=== PATIENT | female | born 1985 | race Hispanic/Latino ===

== ENCOUNTER 2017-04-06 15:47 | Emergency (ER) | payer BC ==
[2017-04-06 16:28] LABS: Basophils % (Auto) 1.1 % (0.0-1.8); Eosinophils % (Auto) 5.1 % (0.0-4.3); Hematocrit 39.7 % (30.3-42.9); Hemoglobin 13.3 gm/dl (10.1-14.3); Mean Corpuscular HGB Conc 33 % (30-34); Mean Corpuscular Hemoglobin 31 pg (28-32); Mean Corpuscular Volume 91 fl (79-97); Platelet Count 372 K/mm3 (140-440); Red Blood Count 4.36 M/mm3 (3.65-5.03); Red Cell Distribution Width 13.1 % (13.2-15.2)
[2017-04-06 16:45] LABS: BUN/Creatinine Ratio 18.33; Blood Urea Nitrogen 11 mg/dL (7-17); Calcium 9.2 mg/dL (8.4-10.2); Carbon Dioxide 24 mmol/L (22-30); Glucose 86 mg/dL (65-100)
[2017-04-06 16:46] LABS: Alanine Aminotransferase 25 units/L (7-56); Albumin 4.4 g/dL (3.9-5); Albumin/Globulin Ratio 1.6 %; Alkaline Phosphatase 44 units/L (35-129); Anion Gap 18 mmol/L; Chloride 100.5 mmol/L (98-107); Lipase 21 units/L (13-60); Potassium 4.1 mmol/L (3.6-5.0); Sodium 138 mmol/L (137-145); Total Protein 7.2 g/dL (6.3-8.2)
[2017-04-06 17:58] LABS: Bilirubin,Urine NEG (Negative); Blood,Urine MOD (Negative); Ketones,Urine 20 mg/dL (Negative); Leukocyte Esterase,Urine NEG (Negative); Mucus,Urine 3+ /HPF; Nitrite,Urine NEG (Negative); Urobilinogen,Urine < 2.0 mg/dL (<2.0)
[2017-04-06] MEDS ORDERED: NACL 0.9% 1000 ML 1,000 ML IV ONE (20:20)
[2017-04-06] MEDS ORDERED: ZOFRAN IV ONE (20:20)
[2017-04-06] MEDS ORDERED: MORPHINE IV ONE (20:21)
--- NOTE | 2017-04-06 20:37 | Emergency Department Report ---
HPI - General Chief Complaint: Abdominal Pain Time Seen by Provider: 04/06/17 20:08 - HPI HPI: This is a 31-year-old female presents to the emergency department from home with complaint of acute on chronic lower abdominal pain. It is associated with some nausea and vomiting. She says that this is been a condition that has been going on for the past year or so. She went to see her primary care physician at [facility] in [place] and a rectal examination was done that made the PCP believe there was a internal hemorrhoid. She was sent to a colorectal surgeon who did a sigmoid scope and didn't fact see a internal hemorrhoid but it was only slightly inflamed and did not appear to be the cause of her discomfort. She is scheduled to have a CT done on Sunday but the pain worsened today and they could not wait any further. She otherwise does not have any diagnosed past medical condition. She has been on pain medication and nausea medication for the symptoms. No recent travel or sick contacts at home. ED Past Medical Hx - Past Medical History Previous Medical History?: No - Surgical History Additional Surgical History: c/s, hip fx with surgery - Social History Smoking Status: Current Every Day Smoker Substance Use Type: None ED Review of Systems ROS: Stated complaint: ABDOMINAL PAIN Other details as noted in HPI Comment: All other systems reviewed and negative Constitutional: denies: chills, fever Eyes: denies: eye pain, eye discharge, vision change ENT: denies: ear pain, throat pain Respiratory: denies: cough, shortness of breath, wheezing Cardiovascular: denies: chest pain, palpitations Gastrointestinal: abdominal pain, nausea, vomiting Genitourinary: denies: urgency, dysuria, discharge Musculoskeletal: denies: back pain, joint swelling, arthralgia Skin: denies: rash, lesions Neurological: denies: headache, weakness, paresthesias Physical Exam - Physical Exam Vital Signs: Vital Signs 04/06/17 15:51 Temperature 97.6 F Pulse Rate 75 Respiratory 16 Rate Blood Pressure 103/72 O2 Sat by Pulse 94 Oximetry Physical Exam: GENERAL: The patient is well-developed well-nourished. HENT: Normocephalic. Atraumatic. Patient has moist mucous membranes. EYES: Extraocular motions are intact. Pupils equal reactive to light bilaterally. NECK: Supple. Trachea is midline. CHEST/LUNGS: Clear to auscultation. There is no respiratory distress noted. HEART/CARDIOVASCULAR: Regular. There is no tachycardia. There is no gallop rub or murmur. ABDOMEN: Abdomen is soft. There is some tenderness palpation to the lower quadrants of the abdomen. No guarding or rebound tenderness. No peritoneal signs. Patient has normal bowel sounds. There is no abdominal distention. SKIN: Skin is warm and dry. NEURO: The patient is awake, alert, and oriented. The patient is cooperative. The patient has no focal neurologic deficits. The patient has normal speech. MUSCULOSKELETAL: There is no tenderness or deformity. There is no limitation range of motion. There is no evidence of acute injury. ED Course Vital Signs 04/06/17 15:51 Temperature 97.6 F Pulse Rate 75 Respiratory 16 Rate Blood Pressure 103/72 O2 Sat by Pulse 94 Oximetry ED Medical Decision Making - Lab Data Result diagrams: 04/06/17 16:14 04/06/17 16:12 - Radiology Data Radiology results: report reviewed CT abdomen and pelvis with contrast. TECHNIQUE: Computerized axial tomography of the abdomen and pelvis was performed after the IV injection of iodinated nonionic contrast. HISTORY: Abdominal pain. COMPARISON: No prior studies are available for comparison. FINDINGS: The lung bases are clear. There are no pleural effusions. The heart size is normal. The liver, spleen and pancreas appear normal. The gallbladder is present. The adrenal glands are not enlarged. Both kidneys appear normal in size and configuration. The abdominal aorta has a normal caliber. There is no retroperitoneal adenopathy. A normal appendix is visible. The gastrointestinal tract is unremarkable. The bladder, uterus and adnexal regions appear normal. There are 2 metallic pins in the right femoral neck. The regional skeleton appears intact. IMPRESSION: No evidence of acute disease in the abdomen or pelvis. - Medical Decision Making 31-year-old female presents to the emergency department with acute on chronic lower abdominal pain. Labs are unremarkable and do not show any etiology of her symptoms. Vital signs stable. She was supposed to have a CT of the abdomen and pelvis done on Sunday so we did one seeping instead. It resulted as a normal examination. She may have some underlying condition such as celiac or other dietary intolerance, IBS or something else but she will need to see a neurology physician and may need a endoscopy and/or colonoscopy. She had he has good follow-up with primary care, surgery and was given a referral by me for gastroenterology. She she already has nausea and pain medication at home. She will return to the ER for any worsening of any symptoms or any acute distress. - Differential Diagnosis colitis, diverticulitis, IBS, gluten allergy Critical Care Time: No Critical care attestation.: If time is entered above; I have spent that time in minutes in the direct care of this critically ill patient, excluding procedure time. ED Disposition Clinical Impression: Abdominal pain Qualifiers: Abdominal location: lower abdomen, unspecified Qualified Code(s): R10.30 - Lower abdominal pain, unspecified Nausea & vomiting Qualifiers: Vomiting type: unspecified Vomiting Intractability: non-intractable Qualified Code(s): R11.2 - Nausea with vomiting, unspecified Disposition: TO HOME OR SELFCARE Is pt being admited?: No Condition: Stable Instructions: Acute Nausea and Vomiting (ED), Abdominal Pain (ED) Additional Instructions: Please follow-up with your primary care physician in the next few days. I have given you a referral for a local neurology physician, Dr. Mora, to follow up regarding your abdominal pain. Return to the emergency Department with any worsening of your symptoms or any acute distress. Referrals: ERIC GATES [Other] - 3-5 Days CHARLES MORA MD [Staff Physician] - 3-5 Days Time of Disposition: 22:54
[2017-04-06 21:14] VITALS: BP 107/63
--- NOTE | 2017-04-06 22:18 | Cat Scan Report ---
FINAL REPORT PROCEDURE: CT abdomen and pelvis with contrast. TECHNIQUE: Computerized axial tomography of the abdomen and pelvis was performed after the IV injection of iodinated nonionic contrast. HISTORY: Abdominal pain. COMPARISON: No prior studies are available for comparison. FINDINGS: The lung bases are clear. There are no pleural effusions. The heart size is normal. The liver, spleen and pancreas appear normal. The gallbladder is present. The adrenal glands are not enlarged. Both kidneys appear normal in size and configuration. The abdominal aorta has a normal caliber. There is no retroperitoneal adenopathy. A normal appendix is visible. The gastrointestinal tract is unremarkable. The bladder, uterus and adnexal regions appear normal. There are 2 metallic pins in the right femoral neck. The regional skeleton appears intact. IMPRESSION: No evidence of acute disease in the abdomen or pelvis.
== END 2017-04-06 23:08 | disposition home or self-care (01) ==
LOC: ED 15:47
DX: R10.30 Lower abdominal pain, unspecified (principal); R11.2 Nausea with vomiting, unspecified; F17.200 Nicotine dependence, unspecified, uncomplicated
CPT/HCPCS: 36415; 74177; 80053; 81001; 83690; 84703; 85025; 86850; 86900; 86901; 96361; 96374; 96375; J2270; J2405; J7030; Q9967